=== PATIENT | male | born 1985 | race Hispanic/Latino ===

== ENCOUNTER 2020-02-27 22:12 | Inpatient (IN) | payer OTHER, SELFPAY ==
[~2020-02-27] VITALS: Ht 185.4 cm; Wt 83.9 kg
[2020-02-27] MEDS ORDERED: SODIUM CHLORIDE 0.9% 1000ML 1,000 ML IV ONE ×2 (23:04→23:42)
[2020-02-28] MEDS ORDERED: ONDANSETRON HCL 4 MG/2 ML VIAL ONE (00:55)
[2020-02-28] MEDS ORDERED: NITROGLYCERIN 1GM/1 INCH PACKET TD ONE (00:55)
[2020-02-28] MEDS ORDERED: ACETAMINOPHEN 325 MG TAB PO PRN ×2 (01:00)
[2020-02-28] MEDS ORDERED: ONDANSETRON HCL 4 MG/2 ML VIAL IV PRN (01:00)
[2020-02-28] MEDS ORDERED: ASPIRIN 325 MG TABLET ONE (01:18)
[2020-02-28] MEDS ORDERED: PSEUDOEPHEDRINE HCL 30 MG TAB PO PRN (01:30)
[2020-02-28] MEDS ORDERED: IOHEXOL 350 MG/ML 100ML INFUS..BTL IV ONE (01:43)
[2020-02-28] MEDS ORDERED: SODIUM CHLORIDE 45 ML SPRY NS PRN (01:45)
[2020-02-28] MEDS ORDERED: ASPIRIN 81MG TAB.CHEW ONE (08:51)
[2020-02-28] MEDS: FLUTICASONE PROPIONATE 50MCG/SPRAY 16 GM BOTTLE EN SCH (09:00)
[2020-02-28 10:25] VITALS: BP 136/78
[2020-02-28 11:00] VITALS: BP 131/74
--- NOTE | 2020-02-28 11:30 | NUR ---
NEURO CONSULT DR ARTHUR NOTIFIED OF CONSULT AND STATED HE WOULD BE IN TOMORROW TO SEE PATIENT, BUT TO HAVE PATIENT CONSULT WITH TELE-NEURO IF NEEDED. PER DR SOTO, IT IS OK TO WAIT FOR NEURO CONSULT BY DR ARTHUR UNTIL TOMORROW. PATIENT IS AWAKE, ALERT, AND ORIENTED X3, NO COMPLAINTS, AND NO WEAKNESS NOTED. STRENGTH TO BLE AND BUE STRONG. NEURO CHECKS CHARTED
[2020-02-28] MEDS: ASPIRIN 81MG TAB.CHEW PO SCH ×2 (11:57→12:12)
[2020-02-28] MEDS: LACTATED RINGERS 1000ML 1,000 ML IV SCH ×2 (11:57→23:32)
--- NOTE | 2020-02-28 13:20 | NUR ---
CM NOTE/IA UNSUCCESSFUL IA NOT COMPLETED, NO ANSWER WHEN NEXT OF KIN CALLED. CM TO FOLLOW UP. Addendum: 02/28/20 at 1805 by MAGO XIONG RN CM Amended: Links added.
[2020-02-28 15:00] VITALS: BP 140/73
[2020-02-28 19:30] VITALS: BP 125/78
[2020-02-29] VITALS (7 sets, daily range): BP systolic 122–136; BP diastolic 50–88
[2020-02-29] MEDS: LACTATED RINGERS 1000ML 1,000 ML IV SCH (06:17)
[2020-02-29] MEDS: ASPIRIN 81MG TAB.CHEW PO SCH (09:00)
[2020-02-29] MEDS: FLUTICASONE PROPIONATE 50MCG/SPRAY 16 GM BOTTLE EN SCH ×3 (09:00→12:30)
--- NOTE | 2020-02-29 18:25 | NUR ---
[facility] CM spoke to pt discussed dc plans. Pt is independent prior to admission, lives at home with spouse. Denies any equipments/services. Feels safe to go back home, still drives, spouse able to assist with transportation and needs as necessary. Pt is a selfpay, [facility] assisting, given community resources packet. DC plan to home once stable. CM to cont to follow up. Addendum: 02/29/20 at 1827 by FLACO CARLTON LVN CM Amended: Links added.
[2020-02-29] MEDS: LEVETIRACETAM 500 MG TABLET PO SCH (20:50)
[2020-02-29] MEDS ORDERED: LEVETIRACETAM 500 MG TABLET PO SCH (21:00)
[2020-03-01 04:00] VITALS: BP 110/69
[2020-03-01 07:35] VITALS: BP_SYST 104; BP_SYST 109; BP_DIAS 57
[2020-03-01] MEDS: LEVETIRACETAM 500 MG TABLET PO SCH (09:35)
[2020-03-01] MEDS: ASPIRIN 81MG TAB.CHEW PO SCH (09:35)
[2020-03-01] MEDS: FLUTICASONE PROPIONATE 50MCG/SPRAY 16 GM BOTTLE EN SCH (09:36)
[2020-03-01 11:55] VITALS: BP 115/73
[2020-03-01] MEDS ORDERED: AMOX-429 PO (12:35)
[2020-03-01] MEDS ORDERED: LEVE-43 PO (12:35)
--- NOTE | 2020-03-01 16:00 | NUR ---
DC PT AWAKE, ALERT, AND ORIENTED. DC HOME INSTRUCTIONS GIVEN TO PT, ACKNOWLEDGED ALL INFORMATION, ALL QUESTIONS ANSWERED. RX GIVEN TO PT; AWARE OF OUTPATIENT APPOINTMENT WITH NEUROLOGY. MADE AWARE TO RETURN TO ER IF NECESSARY
== END 2020-03-01 15:37 | disposition home or self-care (01) | DRG 312 ==
LOC: EDH 22:12 → EDHIP 22:13 → OBSVTOIN 22:13 → 4CH 02-28 10:15
PROVIDERS: ADMIT Internal Medicine; ATTEND Internal Medicine
DX: R55 Syncope and collapse (principal); M62.82 Rhabdomyolysis; J01.90 Acute sinusitis, unspecified; R07.89 Other chest pain; Z20.828 Contact with and (suspected) exposure to other viral communicable diseases; R53.83 Other fatigue
CPT/HCPCS: 36415; 70450; 70551; 71045; 71275; 80053; 80061; 80305; 81003; 82550; 83880; 84484; 85025; 85027; 85378; 85610; 85730; 87426; 93005; 93306; 93356; 99291; G0378; J2405; J7030; J7120; Q9967; U0003

== ENCOUNTER 2021-07-03 10:42 | Emergency (ER) | payer SELFPAY ==
[~2021-07-03] VITALS: Ht 185.4 cm; Wt 86.2 kg
[~2021-07-03 10:42] MED LIST: AMOX-429 PO; LEVE-43 PO
[2021-07-03] MEDS ORDERED: ACET1TAB25 PO (11:36)
[2021-07-03] MEDS ORDERED: SULF1TAB42 PO (11:36)
[2021-07-03 11:58] VITALS: BP 121/96
== END 2021-07-03 12:26 | disposition home or self-care (01) ==
LOC: EDH 10:42
DX: L02.31 Cutaneous abscess of buttock (principal); Z79.899 Other long term (current) drug therapy